=== PATIENT | female | born 1990 | race Caucasian/White ===

== ENCOUNTER 2017-11-28 17:19 | Emergency (ER) | payer MEDICAID, OTHER ==
[~2017-11-28] VITALS: Ht 170.2 cm; Wt 90.7 kg
[2017-11-28] MEDS ORDERED: ORPHENADRINE 60 MG/2 ML (NORFLEX) AMP IV STA (18:38)
--- NOTE | 2017-11-28 18:50 | ED Fall/Injury ---
General Chief Complaint: Lower Extremity Stated Complaint: BACK PAIN Nursing Triage Note: Pt brought to rm 2 in a wheelchair. Pt states she was on a ladder when her right leg became caught in the rungs and pt fell to the grass from the 4th rung. Pt states this happened around noon today. Pt c/o R lower back and R leg pain and numbness. 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[place], [place] --STATES THEY ARE GOING BACK HOME TONIGHT) PT WAS ON THE 4TH RUNG OF LADDER AND SHE CAUGHT HER FOOT ON RUNG AND FELL BACKWARDS OFF LADDER, LANDING ON HER BACK AND RIGHT FLANK AREA--OCCURRED AT 11: 30 AM TODAY C/O SEVERE PAIN TO MID AND LOWER BACK, RIGHT FLANK AND LOWER RIB AREA, AND PAIN RADIATES DOWN RIGHT HIP AND RIGHT LEG STATES RIGHT LEG FEELS A LITTLE NUMB AND TINGLY NO PROBLEMS URINATING NO SHORTNESS OF BREATH, OR PAIN WITH BREATHING NO CHEST PAIN NO RELIEF WITH TYLENOL AT 11:30 TODAY DID NOT HIT HEAD AND NO LOSS OF CONSCIOUSNESS NO NECK PAIN NO NAUSEA/VOMITING NO ABDOMINAL PAIN HAS HAD BACK PROBLEMS IN PAST, BUT WAS RELATED TO KNEE PROBLEMS AND SUBSEQUENT KNEE SURGERY--NO PROBLEMS WITH BACK SINCE HER KNEE HAS HEALED--YEARS AGO LMP --03/2013--S/P HYST PCP: DR. ROQUE IN [place], [place] Allergies and Home Medications Allergies Coded Allergies: Penicillins (Verified Allergy, Severe, "ANAPHYLAXIS" PER PT, 11/28/17) succinylcholine (Verified Allergy, Intermediate, HTN, 11/28/17) NSAIDS (Non-Steroidal Anti-Inflamma (Verified Allergy, Unknown, 11/28/17) Sulfa (Sulfonamide Antibiotics) (Verified Allergy, Unknown, 11/28/17) metoclopramide (Verified Allergy, Unknown, 11/28/17) Uncoded Allergies: IV CONTRAST DYE (Allergy, Intermediate, RASH TO ARM AROUND INJECTION SITE, 11/28/17) Home Medications Cyclobenzaprine HCl 10 Mg Tablet, 10 MG PO Q8H Prescribed by: BABAR MARTIN on 11/28/171954 Methylprednisolone 4 Mg Tab.ds.pk, 4 MG PO UD Prescribed by: BABAR MARTIN on 11/28/171954 Patient Home Medication List Home Medication List Reviewed: Yes Review of Systems Constitutional: no symptoms reported Eyes: No Symptoms Reported Ears, Nose, Mouth, Throat: no symptoms reported Respiratory: see HPI Cardiovascular: see HPI Gastrointestinal: no symptoms reported; No abdominal pain, No vomiting Genitourinary: no symptoms reported Musculoskeletal: see HPI, back pain; No neck pain Skin: no symptoms reported Psychiatric/Neurological: See HPI, Numbness, Paresthesia, Tingling; Denies Weakness Past Zuwgfqn-Cvxkai-Wchknd Hx Patient Social History Alcohol Use: Denies Use Recreational Drug Use: Yes (THC BY HISTORY) Drug of Choice: THC BY HISTORY Smoking Status: Former Smoker (QUIT AGE 22) 2nd Hand Smoke Exposure: No Recent Foreign Travel: No Contact w/Someone Who Travel: No Recent Infectious Disease Expo: No Recent Hopitalizations: No Physical Abuse: No Sexual Abuse: No Seasonal Allergies Seasonal Allergies: No Past Medical History Surgeries: Yes (HYST/OVARIES INTACT 03/2013; RIGHT KNEE SURGERY) Appendectomy, Gallbladder, Hysterectomy, Orthopedic, Tonsillectomy Respiratory: Yes Asthma Cardiac: No 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 oz. 90.912949dk; BMI Method:Stated General Appearance: obese, other (HOLDING RIGHT FLANK, LAYING ON LEFT SIDE. MOVES SLOWLY AND DRAMATICALLY, HOLDING RIGHT FLANK ) HEENT: PERRL/EOMI, normal ENT inspection, TMs normal, pharynx normal Neck: non-tender, full range of motion, supple, normal inspection Cardiovascular: normal peripheral pulses, regular rate, rhythm, no edema, no JVD, no murmur Respiratory: chest non-tender, normal breath sounds, no respiratory distress, no accessory muscle use Gastrointestinal: normal bowel sounds, non tender, soft, no organomegaly, no pulsatile mass Back: CVA tenderness (R), decreased range of motion, vertebral tenderness Extremities: normal range of motion, non-tender, normal inspection, no pedal edema, no calf tenderness, normal capillary refill 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 ) Dashawn Coma Score Best Eye Response: (4) Open Spontaneously Best Verbal Response: (5) Oriented Best Motor Response: (6) Obeys Commands [place] Total: 15 Progress/Results/Core Measures Results/Orders Lab Results Laboratory Tests Test 11/28/17 18:45 11/28/17 19:02 Range/Units Urine Color YELLOW Urine Clarity CLEAR Urine pH 9 5-9 Urine Specific [place] 1.015 L 1.016-1.022 Urine Protein NEGATIVE NEGATIVE Urine Glucose (UA) NEGATIVE NEGATIVE Urine Ketones NEGATIVE NEGATIVE Urine Nitrite NEGATIVE NEGATIVE Urine Bilirubin NEGATIVE NEGATIVE Urine Urobilinogen NORMAL NORMAL MG/DL Urine Leukocyte Esterase NEGATIVE NEGATIVE Urine RBC (Auto) NEGATIVE NEGATIVE Urine RBC NONE /HPF Urine WBC RARE /HPF Urine Squamous Epithelial Cells 0-2 /HPF Urine Crystals NONE /LPF Urine Bacteria NEGATIVE /HPF Urine Casts NONE /LPF Urine Mucus NEGATIVE /LPF Urine Culture Indicated NO Urine Opiates Screen NEGATIVE NEGATIVE Urine Oxycodone Screen POSITIVE H NEGATIVE Urine Methadone Screen NEGATIVE NEGATIVE Urine Propoxyphene Screen NEGATIVE NEGATIVE Urine Barbiturates Screen NEGATIVE NEGATIVE Ur Tricyclic Antidepressants Screen NEGATIVE NEGATIVE Urine Phencyclidine Screen NEGATIVE NEGATIVE Urine Amphetamines Screen NEGATIVE NEGATIVE Urine Methamphetamines Screen NEGATIVE NEGATIVE Urine Benzodiazepines Screen POSITIVE H NEGATIVE Urine Cocaine Screen NEGATIVE NEGATIVE Urine Cannabinoids Screen NEGATIVE NEGATIVE White Blood Count 9.2 4.3-11.0 10^3/uL Red Blood Count 4.57 4.35-5.85 10^6/uL Hemoglobin 13.8 11.5-16.0 G/DL Hematocrit 41 35-52 % Mean Corpuscular Volume 90 80-99 FL Mean Corpuscular Hemoglobin 30 25-34 PG Mean Corpuscular Hemoglobin Concent 34 32-36 G/DL Red Cell Distribution Width 13.4 10.0-14.5 % Platelet Count 219 130-400 10^3/uL Mean Platelet Volume 11.1 H 7.4-10.4 FL Neutrophils (%) (Auto) 71 42-75 % Lymphocytes (%) (Auto) 21 12-44 % Monocytes (%) (Auto) 7 0-12 % Eosinophils (%) (Auto) 0 0-10 % Basophils (%) (Auto) 0 0-10 % Neutrophils # (Auto) 6.5 1.8-7.8 X 10^3 Lymphocytes # (Auto) 1.9 1.0-4.0 X 10^3 Monocytes # (Auto) 0.6 0.0-1.0 X 10^3 Eosinophils # (Auto) 0.0 0.0-0.3 10^3/uL Basophils # (Auto) 0.0 0.0-0.1 10^3/uL Prothrombin Time 13.1 12.2-14.7 SEC INR Comment 1.0 0.8-1.4 Activated Partial Thromboplast Time 29 24-35 SEC Sodium Level 137 135-145 MMOL/L Potassium Level 4.0 3.6-5.0 MMOL/L Chloride Level 104 98-107 MMOL/L Carbon Dioxide Level 24 21-32 MMOL/L Anion Gap 9 5-14 MMOL/L Blood Urea Nitrogen 9 7-18 MG/DL Creatinine 0.67 0.60-1.30 MG/DL Estimat Glomerular Filtration Rate > 60 BUN/Creatinine Ratio 13 Glucose Level 93 70-105 MG/DL Calcium Level 9.2 8.5-10.1 MG/DL Total Bilirubin 0.3 0.1-1.0 MG/DL Aspartate Amino Transf (AST/SGOT) 10 5-34 U/L Alanine Aminotransferase (ALT/SGPT) 6 0-55 U/L Alkaline Phosphatase 55 40-136 U/L Total Protein 7.1 6.4-8.2 GM/DL Albumin 4.2 3.2-4.5 GM/DL My Orders Orders - BABAR MARTIN DO Saline Lock/Iv-Start (11/28/17 18:38) Ct Thoracic/Lumbar Spine Wo (11/28/17 18:38) Cbc With Automated Diff (11/28/17 18:38) Comprehensive Metabolic Panel (11/28/17 18:38) Drug Screen Stat (Urine) (11/28/17 18:38) Protime With Inr (11/28/17 18:38) Partial Thromboplastin Time (11/28/17 18:38) Ua Culture If Indicated (11/28/17 18:38) Chest 1 View, Ap/Pa Only (11/28/17 18:38) Pelvis With Right Hip 2-3views (11/28/17 18:38) Orphenadrine Injection (Norflex Injectio (11/28/17 18:38) Iohexol Injection (Omnipaque 350 Mg/Ml 1 (11/28/17 19:15) Ns (Ivpb) (Sodium Chloride 0.9% Ivpb Bag (11/28/17 19:15) Ct Chest/Abdomen/Pelvis Wo (11/28/17 18:38) Methylprednisolone Sod Succ (Solu-Medrol (11/28/17 20:00) Medications Given in ED Current Medications Medications Dose Ordered Sig/Ingrid Route Start Time Stop Time Status Last Admin Dose Admin Methylprednisolone Sodium Succinate 125 mg ONCE ONCE IVP 11/28/17 20:00 11/28/17 20:01 DC 11/28/17 20:05 125 MG Vital Signs/I&O 11/28/17 11/28/17 18:00 20:11 Temp 97.3 97.6 Pulse 73 70 Resp 12 12 B/P (MAP) 109/63 (78) 120/57 Pulse Ox 100 100 O2 Delivery Room Air Room Air Blood Pressure Mean: 78 Progress Progress Note : Progress Note PT CLAIMS SHE HAS NO MEDICAL PROBLEMS EXCEPT ASTHMA AND DEPRESSION, AND STATES THE ONLY MEDICATIONS SHE TAKES AR PRO AIR INHALER AND CELEXA FOR DEPRESSION. ON REVIEW OF MED RECONCILIATION, PT HAS FILLED MULTIPLE RX'S IN THE LAST MONTH, INCLUDING: HYDROCODONE 5/325-#45 ON 11/07/17 -- MED REC SHOWS THIS FILLED TWICE ON SAME DAY TIZANIDINE 4 MG #60 ON 11/07/17 GABAPENTIN 600 MG #90 ON 11/04/17--MED REC SHOWS THIS FILLED TWICE ON SAME DAY THESE WERE FILLED AT [facility], AND WRITTEN BY DR. HUNTER ROQUE PT ALSO FILLED HYDROCODONE 5 MG #15 ON 11/02/[address] SHANTI SPARKS AND FILLED AT [facility] FILLED DIAZEPAM 5 MG #12 ON 10/23/17 --MED REC SHOWS THIS FILLED TWICE ON SAME DAY--FILLED AT [facility] ALSO HYDROCODONE 5/325 #20 ON 10/22/17--FILLED AT [facility] BOTH WRITTEN BY DR. YAHAIRA ANGEL ( LISTED ER PHYSICIAN IN [place], [place]) PT HAS HAD MULTIPLE RX'S FOR GABAPENTIN FILLED IN THE LAST YEAR, ADDITIONALLY SHE HAS FILLED RX'S FOR TRAMADOL, LORAZEPAM, TRAZADONE, NABUMETONE , NORTRIPTYLINE, KETOPROFEN, ORPHENADRINE WRITTEN BY MULTIPLE PROVIDERS AND FILLED AT MULTIPLE PHARMACIES WHEN QUESTIONED ABOUT RX'S FILLED IN THE LAST MONTH FOR GABAPENTIN, TIZANIDINE, AND HYDROCODONE--PT INITIALLY DENIED ALL OF THEM AND CLAIMED SHE DID NOT KNOW ANY OF THESE MEDICATIONS OR WHAT THEY WERE FOR. LATER, BACK-TRACKS AND STAMMERS AND STATES SHE TOOK HYDROCODONE FOR A TOOTH PROBLEM, BUT STILL CLAIMS SHE DID NOT FILL GABAPENTIN OR TIZANIDINE AND CLAIMS SHE DOES NOT KNOW WHAT THEY ARE/ WHAT THEY WERE PRESCRIBED FOR. PT AMBULATES OUT OF ER ON HER OWN Diagnostic Imaging Comments CXR--NO ACUTE PROCESS PELVIS AND RIGHT HIP XRAYS--NO ACUTE PROCESS CT THORACIC/LUMBAR SPINE--NO ACUTE PROCESS CT CHEST/ABDOMEN/PELVIS--NO ACUTE PROCESS ALL PER RADIOLOGIST REPORTS @ 1945 Reviewed: Reviewed by Me Departure Impression Primary Impression: REPORTED FALL FROM LADDER Additional Impressions: THORACIC AND LUMBAR STRAIN AND CONTUSION RIGHT FLANK CONTUSION Right sided sciatica Disposition: 01 HOME, SELF-CARE Condition: Stable Departure-Patient Inst. Referrals: NO,LOCAL PHYSICIAN (PCP) Primary Care Physician Patient Instructions: Contusion (DC), Lumbar Muscle Strain (DC), Preventing Falls, Sciatica (DC), Upper Back Pain (DC) Add. Discharge Instructions: ICE TO SORE AREAS AT 20 MINUTE INTERVALS FOR FIRST 1-2 DAYS ,THEN ALTERNATE ICE AND HEAT TO SORE AREAS AT 20 MINUTE INTERVALS FOLLOW UP WITH YOUR DR IN 3-4 DAYS FOR FURTHER CARE All discharge instructions reviewed with patient and/or family. Voiced understanding. Scripts Methylprednisolone (Medrol) 4 Mg Tab.ds.pk 4 MG PO UD, #1 PKG Prov: BABAR MARTIN DO 11/28/17 Cyclobenzaprine HCl (Cyclobenzaprine HCl) 10 Mg Tablet 10 MG PO Q8H, #15 TAB Prov: BABAR MARTIN DO 11/28/17 BABAR MARTIN DO Nov 28, 2017 18:50
[2017-11-28 18:57] LABS: BILIRUBIN,URINE NEGATIVE (NEGATIVE); CLARITY,URINE CLEAR; GLUCOSE, URINE (UA) NEGATIVE (NEGATIVE); KETONES,URINE NEGATIVE (NEGATIVE); LEUKOCYTE ESTERASE ,URINE NEGATIVE (NEGATIVE); NITRITE,URINE NEGATIVE (NEGATIVE); PH,URINE 9 (5-9); PROTEIN,URINE NEGATIVE (NEGATIVE); UROBILINOGEN,URINE NORMAL (NORMAL)
[2017-11-28 19:05] LABS: COLOR,URINE YELLOW; WBC,URINE RARE /HPF
[2017-11-28 19:06] LABS: BACTERIA,URINE NEGATIVE /HPF; SQUAMOUS EPITHELIAL CELL,UR 0-2 /HPF
[2017-11-28 19:14] LABS: BASOPHILS % (AUTO) 0 % (0-10); EOSINOPHILS % (AUTO) 0 % (0-10); HEMATOCRIT 41 % (35-52); HEMOGLOBIN 13.8 G/DL (11.5-16.0); LYMPHOCYTES # (AUTO) 1.9 X 10^3 (1.0-4.0); LYMPHOCYTES % (AUTO) 21 % (12-44); MEAN CORPUSCULAR HEMOGLOBIN 30 PG (25-34); MEAN CORPUSCULAR HGB CONC 34 G/DL (32-36); MEAN CORPUSCULAR VOLUME 90 FL (80-99); MEAN PLATELET VOLUME 11.1 FL (7.4-10.4); MONOCYTES # (AUTO) 0.6 X 10^3 (0.0-1.0); MONOCYTES % (AUTO) 7 % (0-12); NEUTROPHILS # (AUTO) 6.5 X 10^3 (1.8-7.8); NEUTROPHILS % (AUTO) 71 % (42-75); PLATELET COUNT 219 10^3/uL (130-400); RED BLOOD COUNT 4.57 10^6/uL (4.35-5.85); RED CELL DISTRIBUTION WIDTH 13.4 % (10.0-14.5); WHITE BLOOD COUNT 9.2 10^3/uL (4.3-11.0)
[2017-11-28 19:15] LABS: AMPHETAMINE SCREEN, URINE NEGATIVE (NEGATIVE); BARBITURATE SCREEN URINE NEGATIVE (NEGATIVE); BENZODIAZEPINES SCREEN URINE POSITIVE (NEGATIVE); CANNABINOID SCREEN, URINE NEGATIVE (NEGATIVE); COCAINE SCREEN URINE NEGATIVE (NEGATIVE); METHADONE STAT NEGATIVE (NEGATIVE); METHAMPHETAMINE SCREEN URINE S NEGATIVE (NEGATIVE); OPIATE SCREEN URINE NEGATIVE (NEGATIVE); OXYCODONE STAT POSITIVE (NEGATIVE); PROPOXYPHENE STAT NEGATIVE (NEGATIVE); TRICYCLIC ANTIDEPRESSANTS SCRE NEGATIVE (NEGATIVE)
[2017-11-28] MEDS ORDERED: IOHEXOL 350 MG/ML 100 ML (OMNIPAQUE 350) VIAL IV ONE (19:15)
[2017-11-28] MEDS ORDERED: NS 100 ML (IVPB) BAG IV ONE (19:15)
[2017-11-28 19:24] LABS: PROTHROMBIN TIME PATIENT 13.1 SEC (12.2-14.7)
--- NOTE | 2017-11-28 19:34 | Diagnostic Imaging Report ---
INDICATION: Fell off of a ladder, complaining of mid and low back pain and right leg pain. Axial imaging through the thoracic and lumbar spine was performed without contrast. Sagittal and coronal reformations were also performed. There is normal thoracic kyphotic curvature and lumbar lordotic curvature. Vertebral body heights are maintained. No acute compression or burst fracture is identified. Posterior elements are unremarkable. Bony spinal canal is widely patent. The paraspinous tissues are unremarkable. No paraspinous hematoma is detected. IMPRESSION: No acute bony abnormality is detected. Dictated by: Dictated on workstation # [id number]
--- NOTE | 2017-11-28 19:41 | Diagnostic Imaging Report ---
INDICATION: Fall from a ladder. TIME OF EXAM: 7:52 p.m. FINDINGS: The heart size is normal. The lungs are clear. No parenchymal contusion is seen. No effusion or pneumothorax is identified. Bony structures are unremarkable. IMPRESSION: No acute abnormality is detected. Dictated by: Dictated on workstation # [id number]
[2017-11-28 19:42] LABS: ALANINE AMINOTRANSFERASE 6 U/L (0-55); ALBUMIN 4.2 GM/DL (3.2-4.5); ALKALINE PHOSPHATASE 55 U/L (40-136); BILIRUBIN,TOTAL 0.3 MG/DL (0.1-1.0); BUN/CREATININE RATIO 13; CALCIUM 9.2 MG/DL (8.5-10.1); CARBON DIOXIDE 24 MMOL/L (21-32); CHLORIDE 104 MMOL/L (98-107); CREATININE SERUM 0.67 MG/DL (0.60-1.30); GFR ESTIMATED > 60; GLUCOSE 93 MG/DL (70-105); SODIUM 137 MMOL/L (135-145); TOTAL PROTEIN 7.1 GM/DL (6.4-8.2)
--- NOTE | 2017-11-28 19:42 | Diagnostic Imaging Report ---
INDICATION: Fall from a ladder. Time of exam: 7:48 PM Femoral-acetabular alignment is normal bilaterally. No fracture is seen. Rami appear intact. SI joints and symphysis are non-widened. IMPRESSION: No acute bony abnormality is detected. Dictated by: Dictated on workstation # [id number]
--- NOTE | 2017-11-28 19:43 | Diagnostic Imaging Report ---
TECHNIQUE: Multiple contiguous axial images were obtained through the chest, abdomen, and pelvis without the use of intravenous contrast. INDICATION: Trauma protocol. Patient fell from a ladder and landed on right side. Mid and low back pain as well as right hip and leg pain. EXAMINATION: CT chest, abdomen and pelvis without contrast, 11/28/2017. FINDINGS: CT chest: The lack of contrast limits evaluation of the vascular structures; however, no gross acute abnormality appreciated within the mediastinum. Density in the anterior mediastinum most likely residual thymic tissue given patient's age. There is no evidence for pneumothorax. Minimal bibasilar posterior dependent atelectasis noted. No nodules or masses appreciated. No infiltrates. CT abdomen and pelvis: Again, lack of contrast limits evaluation of the abdominal viscera. No gross abnormality appreciated within the liver, spleen, adrenal glands or pancreas. The kidneys are unremarkable. There is evidence of previous cholecystectomy. There are findings of constipation in the distal colon, especially rectosigmoid. No surrounding inflammatory process is appreciated. There is no obstructive process. Osseous structures unremarkable. Please see the separate CT thoracic and lumbar spine for better characterization. No free fluid or air seen in the abdomen nor pelvis. IMPRESSION: 1. No acute process within the chest. 2. No acute process in the abdomen or pelvis with incidental findings as discussed above. 3. Findings of constipation in the distal colon with fair amount of stool noted in the region of the cecum which lies low into the pelvis not mentioned above. Dictated by: Dictated on workstation # [id number]
[2017-11-28] MEDS ORDERED: METH4TAB PO (19:55)
[2017-11-28] MEDS ORDERED: CYCL10TA9 PO (19:55)
[2017-11-28] MEDS ORDERED: methylPREDNISolone 125 MG (Solu-MEDROL) VIAL IVP ONE (20:00)
[2017-11-28 20:11] VITALS: BP 120/57
== END 2017-11-28 20:15 | disposition home or self-care (01) ==
LOC: ER 17:22
DX: S29.011A Strain of muscle and tendon of front wall of thorax, initial encounter (principal); S39.012A Strain of muscle, fascia and tendon of lower back, initial encounter; S30.1XXA Contusion of abdominal wall, initial encounter; M54.41 Lumbago with sciatica, right side; J45.909 Unspecified asthma, uncomplicated; E66.9 Obesity, unspecified; F32.9 Major depressive disorder, single episode, unspecified; R40.2142 Coma scale, eyes open, spontaneous, at arrival to emergency department; R40.2252 Coma scale, best verbal response, oriented, at arrival to emergency department; R40.2362 Coma scale, best motor response, obeys commands, at arrival to emergency department; Z88.0 Allergy status to penicillin; Z88.6 Allergy status to analgesic agent; Z88.2 Allergy status to sulfonamides; Z88.8 Allergy status to other drugs, medicaments and biological substances; Z68.31 Body mass index [BMI] 31.0-31.9, adult; Z91.041 Radiographic dye allergy status; Z79.52 Long term (current) use of systemic steroids; Z87.891 Personal history of nicotine dependence; Z90.89 Acquired absence of other organs; Z90.710 Acquired absence of both cervix and uterus; W11.XXXA Fall on and from ladder, initial encounter
CPT/HCPCS: 36415; 71045; 71250; 72128; 72131; 74176; 80053; 80306; 81000; 85025; 85610; 85730; 96374; 96375